=== PATIENT | female | born 1980 | race Caucasian/White ===

== ENCOUNTER → 2019-04-19 | Outpatient (CLI) | payer BC ==
--- NOTE | 2019-04-20 15:51 | MRI ---
EXAM DESCRIPTION: Lumbar Spine w/o Contrast : Magnetic Resonance Imaging. CLINICAL HISTORY: LUMBAR DISC DISEASE COMPARISON: None. TECHNIQUE: Multiplanar, multiple standard sequences, non contrast MRI, lumbar spine. Some segments is demonstrate motion artifact. FINDINGS: L5-S1: The entire disc space is visualized on axial T2 sequence 501, image 3. Grade 1 retrolisthesis 3.5 mm. Bilaterally shortened pedicles. Posterior midline disc bulge 4.5 mm with desiccated signal. Minimal disc space loss. AP canal diameter 11 mm. Posterior elements are unremarkable. Bilateral moderate foraminal narrowing more on the right. L4-L5: Disc desiccation with disc space preserved. Posterior midline 5 mm protrusion with extrusion inferior to the disc space, almost 10 mm, effacing the right subarticular recess and abutting the descending right L5 nerve. Bilateral hypertrophic facet arthrosis, right more than left, and thickening of the posterior flavum ligaments. Bilaterally shortened pedicles. Small cysts posterior to the left facet joint. AP canal diameter 10 mm to the right of midline. Mild to moderate bilateral foraminal narrowing. L3-L4: Normal signal in the disc. Focal concavities in the endplates. Disc spaces otherwise preserved and no posterior bulging. Bilateral shortened pedicles with mild canal narrowing. Thickening of the posterior ligaments. Bilateral mild foraminal narrowing. L2-L3: Disc desiccation and minimal disc space loss. Schmorl's node in the superior endplate. Bilaterally shortened pedicles. Anterior moderate endplate reactive changes and bulging disc. Tiny posterior left paracentral disc bulge 4 mm and minimal narrowing of the base of the left foramen and the left subarticular recess. Bilateral foramina are patent. Left paracentral AP canal diameter 10 mm. L1-L2: Normal signal in the disc and posterior disc space narrowing. Focal concavities in the endplates with no disc bulge. Minimal thickening of the posterior ligaments. Mild canal narrowing. Bilateral foramina are patent. T12-L1: Normal signal in the disc with posterior disc space narrowing. Focal concavities in the endplates. No posterior disc bulge. Posterior elements unremarkable. Canal and bilateral foramina are patent. No scoliosis. Paravertebral soft tissues unremarkable.. Normal marrow signal in the remaining vertebral bodies and the posterior elements. Vertebral bodies are not compressed at any level. IMPRESSION: 1. Bilaterally shortened pedicles contribute to canal narrowing or stenosis at multiple levels. Also focal concavities in the central endplates at multiple levels. 2. Grade 1 retrolisthesis at L5-S1. Posterior midline disc bulge with moderate canal narrowing. Bilateral moderate foraminal narrowing. 3. Posterior midline protrusion of the L4-5 disc and extrusion inferior to the disc space effacing the right subarticular recess and abutting the descending right L5 nerve. Bilateral facet arthrosis with small cysts posterior to the left facet. 4. Posterior left paracentral L2-L3 disc bulge with left paracentral borderline canal stenosis. Moderate spondylosis anterior endplates. Disc also narrowing the left subarticular recess and abutting the descending left L3 nerve. Electronically signed by: Chiki Interiano MD 04/20/2019 3:49 PM CDT
== END ==
LOC: MRI 14:16
PROVIDERS: ATTEND Nurse Practitioner Family
DX: M51.36 Other intervertebral disc degeneration, lumbar region (principal); M43.17 Spondylolisthesis, lumbosacral region; M51.86 Other intervertebral disc disorders, lumbar region; M47.896 Other spondylosis, lumbar region

== ENCOUNTER 2019-11-13 04:30 | Observation (INO) | payer BC ==
[2019-11-13] MEDS ORDERED: ONDANSETRON INJ 4 MG/2 ML VIAL IV ONE ×2 (04:42→08:41)
[2019-11-13] MEDS ORDERED: SODIUM CHLORIDE 0.9% (FLUSH) 10 ML SYG IV PRN ×2 (04:42→10:16)
[2019-11-13] MEDS ORDERED: SODIUM CHLORIDE 0.9% 1000ML 1,000 ML IVS PRN (04:42)
[2019-11-13] MEDS ORDERED: ALUM & MAG HYDROX-SIMETHICONE 30 ML, LIDOCAINE VISCOUS 2% 15 ML PO ONE ×2 (05:46)
[2019-11-13] MEDS ORDERED: LIDOCAINE HCL 2% (MOUTH-THROAT) 15 ML UD ONE (05:47)
[2019-11-13] MEDS ORDERED: ALUM & MAG HYDROX-SIMETHICONE 30 ML UD ONE (05:47)
[2019-11-13] MEDS ORDERED: HYDROmorphone HCL INJ 2 MG/ML VIAL IV ONE ×2 (06:13→07:15)
--- NOTE | 2019-11-13 06:47 | ED.PDOC ---
History of Present Illness - General Chief Complaint: GI Problem Stated Complaint: abd pain, nausea Time Seen by Provider: 11/13/19 05:45 Information Source: patient, RN notes reviewed, Vital Signs reviewed Exam Limitations: no limitations - History of Present Illness Initial Comments: Patient is a 39-year-old white female who presents with complaints of epigastric abdominal pain. The abdominal pain started about 1:30 in the morning and awoke her from sleep. The pain is crampy as well as sharp and stabbing. Nothing seems to make the pain better. She tried drinking water, a Sprite and taking an antacid without success. Nothing seems to make the pain worse. Patient complains of nausea. She denies any chest pain, shortness of breath, vomiting or diarrhea. Abdominal Pain Onset Location: epigastric Pain Radiation: no radiation Quality: severe, cramping, stabbing Timing/Duration: 4-6 hours Improving Factors: nothing Worsening Factors: nothing Associated Symptoms: heartburn, nausea/vomiting - Nausea only Review of Systems - Review of Systems Constitutional: States: no symptoms reported, see HPI. Denies: chills, fever EENTM: States: no symptoms reported Respiratory: States: no symptoms reported Cardiology: States: no symptoms reported. Denies: chest pain, palpitations, syncope Gastrointestinal/Abdominal: States: see HPI, abdominal pain, nausea. Denies: diarrhea, vomiting Genitourinary: States: no symptoms reported Musculoskeletal: States: no symptoms reported Skin: States: no symptoms reported Neurological: States: no symptoms reported Endocrine: States: no symptoms reported Hematologic/Lymphatic: States: no symptoms reported All other Systems: Reviewed and Negative Past Medical History (General) - Patient Medical History Hx Asthma: No Hx Hypertension: Yes Hx Diabetes: No Surgical History: Hysterectomy - Vaccination History Hx Tetanus, Diphtheria Vaccination: Yes Hx Influenza Vaccination: No - Social History Hx Alcohol Use: Yes Family Medical History - Family History Mother Living Status: Hx Family Hypertension: Yes Hx Cardiac Disease: Yes Father Hx Family Hypertension: Yes Hx Family Cancer: Yes - prostate Physical Exam - Physical Exam General Appearance: Alert, Anxious, Obvious distress, Well Developed, Well Groomed, Well Hydrated, Well Nourished Eyes, Ears, Nose, Throat Exam: PERRL/EOMI, pharynx normal Neck: non-tender, full range of motion, supple, normal inspection Respiratory: chest non-tender, lungs clear, normal breath sounds, no respiratory distress, no accessory muscle use Cardiovascular/Chest: normal peripheral pulses, regular rate, rhythm, no edema, no gallop, no JVD, no murmur Peripheral Pulses: No deficit Gastrointestinal/Abdominal: normal bowel sounds, soft, tenderness - Epigastric, no peritoneal signs. Back Exam: normal inspection, no CVA tenderness, no vertebral tenderness Extremity: normal range of motion, non-tender, normal inspection, no pedal edema Neurologic: medical billing specialist II-XII nml as tested, no motor/sensory deficits, alert, normal mood/affect, oriented x 3 Skin Exam: normal color, warm/dry Lymphatic: no adenopathy Progress - Progress Progress: DDX: GERD, PUD, bowel obstruction, perforation among others. 11/13/19 07:08 Pt handed off to oncoming provider. - Results/Orders Results/Orders: 11/13/19 04:42 Sodium Chloride 0.9% (Flush) [Saline Flush Syringe] 10 ml IV PRN PRN Sodium Chloride 0.9% 1000ML [Ns 1000 ml] 1,000 ml IVS .QD 11/13/19 04:43 IV Care:Saline Lock per Protoc QSHIFT 11/13/19 06:17 Hold Metformin x 48Hrs [id number] Abdomen/Pelvis w/Contrast [CT] Stat Laboratory Results - last 24 hr 11/13/19 11/13/19 11/13/19 04:54 04:54 04:54 WBC 12.2 H RBC 4.60 Hgb 15.0 Hct 43.8 MCV 95.2 MCH 32.5 H MCHC 34.2 RDW 13.7 Plt Count 184 MPV 10.9 H Absolute Neuts (auto) 8.30 H Absolute Lymphs (auto) 2.90 Absolute Monos (auto) 0.70 Absolute Eos (auto) 0.20 Absolute Basos (auto) 0.10 Neutrophils % 68.2 Lymphocytes % 23.9 Monocytes % 5.9 Eosinophils % 1.2 Basophils % 0.8 Sodium 137 Potassium 3.2 L Chloride 99 L Carbon Dioxide 25 Anion Gap 16.2 BUN 12 Creatinine 0.72 BUN/Creatinine Ratio 16.7 Random Glucose 130 H Serum Osmolality 275.3 Lactic Acid Calcium 9.6 Total Bilirubin Direct Bilirubin Indirect Bilirubin AST ALT Alkaline Phosphatase Serum Total Protein Albumin Amylase 30 Lipase 36 Urine Color Yellow Urine Appearance Clear Urine pH 5.5 Ur Specific [place] >= 1.030 Urine Protein Negative Urine Glucose (UA) Negative Urine Ketones Trace Urine Blood Moderate H Urine Nitrite Negative Urine Bilirubin Negative Urine Urobilinogen 0.2 Ur Leukocyte Esterase Negative Urine RBC 3-5 H Urine WBC 0-1 Ur Epithelial Cells 5-10 Amorphous Sediment Trace Urine Bacteria 4+ H Urine HCG, Qual 11/13/19 11/13/19 11/13/19 05:48 06:22 06:44 WBC RBC Hgb Hct MCV MCH MCHC RDW Plt Count MPV Absolute Neuts (auto) Absolute Lymphs (auto) Absolute Monos (auto) Absolute Eos (auto) Absolute Basos (auto) Neutrophils % Lymphocytes % Monocytes % Eosinophils % Basophils % Sodium Potassium Chloride Carbon Dioxide Anion Gap BUN Creatinine BUN/Creatinine Ratio Random Glucose Serum Osmolality Lactic Acid 2.2 Calcium Total Bilirubin 0.6 Direct Bilirubin 0.1 Indirect Bilirubin 0.5 AST 24 ALT 43 Alkaline Phosphatase 58 Serum Total Protein 7.7 Albumin 4.5 Amylase Lipase Urine Color Urine Appearance Urine pH Ur Specific [place] Urine Protein Urine Glucose (UA) Urine Ketones Urine Blood Urine Nitrite Urine Bilirubin Urine Urobilinogen Ur Leukocyte Esterase Urine RBC Urine WBC Ur Epithelial Cells Amorphous Sediment Urine Bacteria Urine HCG, Qual Negative Departure - Departure Clinical Impression: Abdominal pain Qualifiers: Abdominal location: epigastric Qualified Code(s): R10.13 - Epigastric pain Condition: Fair Departure Forms: ED Discharge - Pt. Copy, Patient Portal Self Enrollment Referrals: Sushma Monzon NP [Primary Care Provider] - 1-2 Weeks Home Medications: Ambulatory Orders Bupropion HCl [Bupropion Hydrochloride E] 150 mg PO DAILY 11/13/19 Cyclobenzaprine HCl [Flexeril] 5 mg PO TID PRN 11/13/19 Escitalopram [Lexapro] 10 mg PO BEDTIME 11/13/19 Hydrochlorothiazide 25 mg PO DAILY 11/13/19 Nebivolol HCl [Bystolic] 20 mg PO DAILY 11/13/19 Omeprazole 40 mg PO DAILY 11/13/19
[2019-11-13] MEDS ORDERED: PANTOPRAZOLE SODIUM IV 40 MG VIAL IV ONE (07:45)
--- NOTE | 2019-11-13 08:12 | CT ---
EXAM DESCRIPTION: CT ABDOMEN AND PELVIS WITH CONTRAST CLINICAL HISTORY: epigastric pain COMPARISON: None Available. TECHNIQUE: CT of the abdomen and pelvis are performed after IV contrast administration. No oral contrast was given. Multiplanar reconstructions were obtained. FINDINGS: The lung bases are clear. The liver is mildly enlarged measuring 20 cm and is normal in contour. The gallbladder is unremarkable without calcified gallstone. No biliary ductal dilatation. The Spleen, pancreas, and kidneys enhances normally. No hydronephrosis or nephrolithiasis. No focal bowel wall thickening or bowel obstruction. The appendix is normal. Mild distal descending colonic diverticulosis without diverticulitis. There is no lymphadenopathy, inflammation, or free fluid observed. The partially decompressed bladder is unremarkable. The uterus is surgically absent. No acute osseous abnormality. Degenerative changes of the spine. IMPRESSION: 1. No acute intra-abdominal/pelvic process is seen on CT. 2. Mild diverticulosis without diverticulitis. 3. Mild hepatomegaly. This exam was performed according to our departmental dose-optimization program, which includes automated exposure control, adjustment of the mA and/or kV according to patient size and/or use of iterative reconstruction technique. Electronically signed by: Zac Canas DO 11/13/2019 8:11 AM [facility]
[2019-11-13] MEDS ORDERED: fentaNYL CITRATE INJ 50 MCG/ML AMP IV ONE (08:41)
--- NOTE | 2019-11-13 09:22 | HP ---
SUPERVISING PHYSICIAN: Speedy Grady MD CHIEF COMPLAINT: Epigastric abdominal pain. HISTORY OF PRESENT ILLNESS: Ms. Person is a 39 year-old female patient who presented to the Emergency Room early this morning after she started having some abdominal pain in her epigastric region around 1:30. She noted the pain awakened her from sleep and was described as cramping, sharp and stabbing with some radiation to her back. She denied any chest pain, shortness of breath, diaphoresis. She was a little nauseated but had no emesis. She tried drinking some water, Sprite, take an antacid without any success in relieving her discomfort. She presented to the Emergency Room for evaluation. Workup showed she had a mild leukocytosis of 12,000 with no left shift. Chemistries showed a mild hypokalemia at 3.2 on potassium and lactic acid normal at 2.2 with liver functions all within normal limits as well as lipase and amylase, She had a CT of the pelvis/abdomen with contrast and per radiology interpretation there was no acute intraabdominal or pelvic process on the CT. There was note of some mild diverticulosis without any diverticulitis and some mild hepatomegaly. The gallbladder was noted to be unremarkable without stones in the biliary duct and without any biliary duct dilation. Dr. Post, general surgeon, was consulted in the Emergency Room and saw the patient, After examination, Dr. Post recommended the patient could be observed for further treatment and pain control and would likely need an EGD in the near future to further assess the source of the pain in her epigastric region. The patient required multiple doses of medication for pain control including Dilaudid and Fentanyl. Given that she is requiring IV pain management and the severity of the pain, she is going to be placed in observation for further pain control and close observation. The patient is placed in observation in stable condition. PAST MEDICAL HISTORY: 1. Gastroesophageal reflux disease. 2. Hypertension. 3. Depression. PAST SURGICAL HISTORY: Partial hysterectomy. CURRENT MEDICATIONS: 1. Omeprazole 40 mg daily. 2. Flexeril 5 mg t.i.d. as needed. 3. Bupropion 150 mg daily. 4. Bystolic 20 mg daily. 5. Hydrochlorothiazide 25 mg daily. 6. Lexapro 10 mg at bedtime. ALLERGIES: PENICILLIN FAMILY HISTORY: Father at age 62 with history of pancreatic cancer. Mother at 65 due to myocardial infarction. She has one sister and 2 brothers who are all healthy. SOCIAL HISTORY: The patient recently moved to [place] within the last 2 months and currently works at the [employer]. She currently smokes approximately 5 to 6 cigarettes daily. She drinks alcohol in the form of mixed drinks and liquor, maybe one or two drinks every other week. Her most recent was last night with supper. REVIEW OF SYSTEMS: CONSTITUTIONAL: As noted in history of present illness. General malaise but denies fevers or chills but with some nausea. HEENT: Negative for sore throats, earaches, nasal congestion, vision changes. RESPIRATORY: Denies coughing, wheezing shortness of breath. CARDIOVASCULAR: Negative for chest pain, palpitations or syncopal episodes. GASTROINTESTINAL: As noted in history of present illness. Epigastric abdominal pain with nausea but no actual emesis. Denies diarrhea, constipation/ GENITOURINARY: Negative for dysuria, hematuria, polyuria. MUSCULOSKELETAL: Denies joint swelling or arthralgias. SKIN: No reported lesions, moles, rashes or unexplained changes. NEUROLOGIC: Denies ataxia, seizures or syncopal episodes, headaches or other focal deficits. PHYSICAL EXAMINATION: VITAL SIGNS: Initially in the Emergency Room, she was showing to be quite hypertensive with a blood pressure of 166/117. She is afebrile at 97.6 with pulse of 85. Respirations 20, oxygen saturation 96% on room air. After pain management and prior to admission to the floor, her blood pressure was better controlled at 137/73. Initial weight 119 kg. GENERAL: The patient appears to be well-hydrated and well-nourished but is in some discomfort from pain but in no acute obvious distress. HEENT: Tympanic membranes clear bilateral, oropharynx pink and moist without any lesions. NECK: Supple, non-tender, full range of motion, no jugular venous distention. CHEST: Lung sounds are clear to auscultation bilaterally without rhonchi, rales, or wheezes. CARDIOVASCULAR: Regular rate and rhythm without appreciable murmurs, rubs, or gallops. ABDOMEN: Soft, with tenderness noted over the epigastric region but no peritoneal signs, no rebound tenderness, no guarding, no point tenderness. BACK: Normal inspection with no CVA or vertebral tenderness. EXTREMITIES: No edema. NEUROLOGIC: Cranial nerves II through XII are grossly intact. She is alert and oriented x3. SKIN: Warm, pink and dry. LABORATORY: CBC showed a mild leukocytosis of 12,200, hemoglobin 15, hematocrit 43.8, platelet count 184,000, differential showed to be without a left shift. Chemistries showed a mildly low potassium at 3.2, sodium normal at 137, BUN 12, creatinine 0.72, lactic acid 2.2, calcium 9.6. Liver functions all within normal limits. Troponins pending at time of admission. Amylase and lipase both within normal limits . Urinalysis showed a moderate amount of blood with 3 to 5 RBCs on microscopic exam with 0 WBCs, 5 to 10 epithelials, trace of amorphous material and 4+ bacteria. HCG urine was negative. RADIOLOGY: Abdominal/pelvic CT with contrast per radiology interpretation showed no acute intraabdominal pelvic process seen on CT. There was note of mild diverticulosis without diverticulitis and some mild hepatomegaly. ASSESSMENT: 1. Acute abdominal pain, epigastric region, possibly gastritis versus peptic ulcer disease, duodenitis with patient requiring IV pain control with no acute findings on CT. 2. Diverticulosis noted on CT without any signs of diverticulitis. 3. Hypertension. 4. Gastroesophageal reflux disease possibly contributing to #1 with the patient on a PPI. 5. Mild electrolyte imbalance with a hypokalemia. 6. Depression. PLAN: Ms. Person is going to be placed in observation to assist with pain control and initially she will be on clear liquids. She will be given antiemetics with Zofran and Phenergan as needed and pain control with Dilaudid and morphine as needed. We will go ahead and start her on some IV fluids to help replace some of the potassium. IV fluids will include normal saline with 20 of potassium. I will also start her on some Carafate a.c. and h.s. as well as continued coverage with Protonix. We will resume her medication as appropriate to care once those have been updated and verified. She was seen in consultation with Dr. Post prior to admission who noted that the patient would need to be seen as an outpatient after discharge for EGD for further evaluation. Until we can transition him to outpatient management, we will continue to monitor and treat as needed. #[id number] [facility]
[2019-11-13] MEDS ORDERED: ACETAMINOPHEN 325 MG TAB PO PRN (10:16)
[2019-11-13] MEDS ORDERED: IV SET AND CAP CHANGE INJ INJ SCH (10:30)
[2019-11-13] MEDS: MORPHINE SULFATE INJ 10 MG/ML VIAL IV PRN ×3 (11:05→18:28)
[2019-11-13] MEDS: ONDANSETRON INJ 4 MG/2 ML VIAL IV PRN ×2 (11:06→18:28)
[2019-11-13] MEDS: KCL 20 MEQ/NS 1,000 ML IVS PRN ×2 (11:08→18:27)
[2019-11-13] MEDS ORDERED: CYCLOBENZAPRINE HCL 5 MG TAB PO PRN (12:53)
[2019-11-13] MEDS: hydroCHLOROthiazide 25 MG TAB PO SCH (13:34)
[2019-11-13] MEDS: SUCRALFATE 1 GM/10 ML 1 GM UD PO SCH ×3 (13:35→20:16)
[2019-11-13] MEDS ORDERED: KETOROLAC TROMETHAMINE INJ 30 MG/ML VIAL IV ONE (17:55)
--- NOTE | 2019-11-13 19:04 | RAD ---
EXAM DESCRIPTION: Abdomen Flat Upright CLINICAL HISTORY: 39 years Female abd pain COMPARISON: None TECHNIQUE: Three images of the abdomen were obtained. FINDINGS: Gas is seen throughout the bowel. Bowel is normal in caliber. Linear radiopaque densities overlying sacrum likely related to prior fallopian tube instrumentation. Multiple pelvic calcifications likely vascular in nature. No intraperitoneal free air. IMPRESSION: Nonspecific bowel gas pattern. No bowel obstruction or perforation. Electronically signed by: Thelma Lovelace MD 11/13/2019 7:03 PM [employer]
[2019-11-13] MEDS: NEBIVOLOL 2.5 MG TAB PO SCH (19:20)
[2019-11-13] MEDS ORDERED: levoFLOXacin 500MG IV 500 MG in PREMIX BAG 1 BAG IVPB SCH (20:30)
[2019-11-13] MEDS ORDERED: levoFLOXacin 500MG IV 100 ML IVPB ONE (20:34)
[2019-11-13] MEDS ORDERED: ESCITALOPRAM 10 MG TAB PO SCH (21:00)
[2019-11-14] MEDS ORDERED: KETOROLAC TROMETHAMINE INJ 30 MG/ML VIAL IV ONE (01:00)
[2019-11-14] MEDS: KCL 20 MEQ/NS 1,000 ML IVS PRN (03:13)
[2019-11-14] MEDS: SUCRALFATE 1 GM/10 ML 1 GM UD PO SCH ×2 (06:14→12:15)
[2019-11-14] MEDS: ONDANSETRON INJ 4 MG/2 ML VIAL IV PRN (09:53)
[2019-11-14] MEDS ORDERED: KETOROLAC TROMETHAMINE INJ 30 MG/ML VIAL IM ONE (10:01)
[2019-11-14] MEDS ORDERED: HYDROcodone 10MG/APAP 325MG 1 EA TAB PO ONE (10:01)
[2019-11-14] MEDS: hydroCHLOROthiazide 25 MG TAB PO SCH (10:55)
[2019-11-14] MEDS: NEBIVOLOL 2.5 MG TAB PO SCH (10:55)
[2019-11-14 13:26] VITALS: BP 111/73; TEMP 97.9; O2SAT 99
--- NOTE | 2019-11-15 10:05 | DS ---
SUPERVISING PHYSICIAN: Speedy Grady MD CONSULTING PHYSICIAN: Speedy Post MD ADMISSION DIAGNOSIS: 1. Acute abdominal pain, epigastric region, possibly gastritis versus peptic ulcer disease, duodenitis with patient requiring IV pain control with no acute findings on CT. 2. Diverticulosis noted on CT without any signs of diverticulitis. 3. Hypertension. 4. Gastroesophageal reflux disease possibly contributing to #1 with the patient on a proton pump inhibitor. 5. Mild electrolyte imbalance with hypokalemia. 6. Depression. DISCHARGE DIAGNOSIS: 1. Acute abdominal pain, uncertain etiology, differential to include possible gastritis versus peptic ulcer disease, duodenitis, cholelithiasis without any acute cholecystitis with patient showing good response to treatment, needing EGD on followup with no other acute findings on CT. 2. Diverticulosis without any signs of diverticulitis. 3. Leukocytosis with no overt signs of infectious process other than a mild urinary tract infection that was treated with Levaquin, felt to be related to acute pain with demargination with white count normalizing prior to discharge. 4. Hypertension, stable. 5. Gastroesophageal reflux disease previously on a proton pump inhibitor, possibly contributing to #1 with a stable hemoglobin and hematocrit. 6. Mild electrolyte imbalance with hypokalemia, resolved with treatment. 7. Depression. REASON FOR HOSPITALIZATION: Ms. Person is a 39 year-old female patient who presented to the Emergency Room early this morning after she started having some abdominal pain in her epigastric region around 1:30. She noted the pain awakened her from sleep and was described as cramping, sharp and stabbing with some radiation to her back. She denied any chest pain, shortness of breath, diaphoresis. She was a little nauseated but had no emesis. She tried drinking some water, Sprite, take an antacid without any success in relieving her discomfort. She presented to the Emergency Room for evaluation. Workup showed she had a mild leukocytosis of 12,000 with no left shift. Chemistries showed a mild hypokalemia at 3.2 on potassium and lactic acid normal at 2.2 with liver functions all within normal limits as well as lipase and amylase, She had a CT of the pelvis/abdomen with contrast and per radiology interpretation there was no acute intraabdominal or pelvic process on the CT. There was note of some mild diverticulosis without any diverticulitis and some mild hepatomegaly. The gallbladder was noted to be unremarkable without stones in the biliary duct and without any biliary duct dilation. Dr. Post, general surgeon, was consulted in the Emergency Room and saw the patient, After examination, Dr. Post recommended the patient could be observed for further treatment and pain control and would likely need an EGD in the near future to further assess the source of the pain in her epigastric region. The patient required multiple doses of medication for pain control including Dilaudid and Fentanyl. Given that she is requiring IV pain management and the severity of the pain, she is going to be placed in observation for further pain control and close observation. The patient is placed in observation in stable condition. LABORATORY: CBC showed slightly elevated white count at 12,200. This resolved and on discharge was 10,400 with hemoglobin 12.8, hematocrit 38.5. Differential was without a left shift at discharge. Chemistries on discharge showed normal electrolytes with BUN/creatine ratio 0.66. Lactic acid 2.2. Liver functions were within normal limits. She had three troponins that were less than 0.02. She did have one C-reactive protein that was elevated at 6.6. Her ESR was within normal limits. Amylase and lipase were both within normal limits. Urinalysis showed a moderate amount of blood with microscopic showing 3 to 5 RBCs, 5 to 10 epithelials, 1+ bacteria. HCG was negative. Toxicology screen was negative for substances tested. MICROBIOLOGY: No specimens were submitted for evaluation. RADIOLOGY: Abdominopelvic CT on admission to the Emergency Room with contrast per radiologic interpretation showed no intraabdominal or pelvic process. There was note of diverticulosis, but no diverticulitis as well as some mild hepatomegaly. Additional x-rays included abdominal x-ray which showed nonspecific bowel gas pattern, but no bowel obstruction or perforation. HOSPITAL COURSE: Ms. Person was admitted for acute abdominal pain on 11/13/19 from the Emergency Room. She was kept NPO initially and then started on p.o. liquids. She was treated with pain management with Dilaudid and morphine as needed and antiemetics. She did have a consultation with Dr. Post to review her CT findings. Please see his consultation for details. She was given IV fluids. She was no longer having any significant amount of pain other than just some achy pain that was resolving with Toradol. She did have a little bit of nausea associated with her meals, but was able to tolerate oral intake and showing to be stable clinically. It was felt she was clinically stable and had improved well enough to continue with outpatient management to include an outpatient EGD and an ultrasound of her liver and gallbladder. PHYSICAL ASSESSMENT ON DISCHARGE: VITAL SIGNS: Stable with temperature 97.9, pulse 76, blood pressure 111/73, respiratory rate 16, saturation 99% on room air. GENERAL APPEARANCE: The patient was without any acute distress. She was alert. CHEST: Lung sounds clear to auscultation without any wheezing, rhonchi or rales. HEART: Regular rate and rhythm. ABDOMEN: Soft with some mild tenderness noted on epigastric palpation. No rebound tenderness, no point tenderness, no peritoneal signs. Bowel sounds were active. EXTREMITIES: Without edema. NEUROLOGIC: Alert and oriented times 3. SKIN: Warm, pink and dry. PLAN: Ms. Person was discharged on 11/14/19 with instructions to followup with [facility] and Dr. Post. She is to call Dr. Post's office after discharge and was given outpatient paperwork requisition for a followup ultrasound of the gallbladder and liver with results to be sent to Dr. Post. She will need an EGD which will be arranged by Dr. Post's office. She was educated on avoiding alcohol and smoking. She was told to push fluids to prevent dehydration. She was given Toradol for pain, but instructed to only take it if Tylenol did not control her pain. She was also given some Zofran as needed. She was instructions should she have any worsening of symptoms or other concerns to return to the Emergency Room for further evaluation. Diet on discharge was clear liquid diet, advance to full diet as tolerated. Avoid spicy and fatty foods. Activity to increase as tolerated. Medications on discharge included: 1. Cipro 250 mg q.12h., #10, no refills, for continued treatment of questionable urinary tract infection. 2. Toradol 10 mg q.6h., #10, no refills. 3. Zofran ODT 8 mg q.6h. as needed, #8. 4. Carafate 1 gram orally before meals and at bedtime, #10, no refills. All other home medications were continued as prior to hospitalization which included: 1. Omeprazole 40 mg daily. 2. Flexeril 5 mg b.i.d. as needed. 3. Wellbutrin 150 mg daily. 4. Bystolic 20 mg daily. 5. Hydrochlorothiazide 25 mg daily. 6. Lexapro 10 mg at bedtime. CONDITION ON DISCHARGE: Stable and improved. DISPOSITION: The patient was discharged home to care of family. #[id number] [facility]
== END 2019-11-14 12:40 | disposition home or self-care (01) ==
LOC: ER 04:30 → MS 09:21
PROVIDERS: ADMIT Nurse Practitioner Family; ATTEND Nurse Practitioner Family
DX: R10.13 Epigastric pain (principal); E87.6 Hypokalemia; E87.8 Other disorders of electrolyte and fluid balance, not elsewhere classified; R11.0 Nausea; K57.30 Diverticulosis of large intestine without perforation or abscess without bleeding; D72.829 Elevated white blood cell count, unspecified; N39.0 Urinary tract infection, site not specified; I10 Essential (primary) hypertension; K21.9 Gastro-esophageal reflux disease without esophagitis; F32.9 Major depressive disorder, single episode, unspecified; R16.0 Hepatomegaly, not elsewhere classified; F17.210 Nicotine dependence, cigarettes, uncomplicated; Z79.899 Other long term (current) drug therapy; Z88.0 Allergy status to penicillin; Z90.710 Acquired absence of both cervix and uterus; Z80.0 Family history of malignant neoplasm of digestive organs; Z82.49 Family history of ischemic heart disease and other diseases of the circulatory system
CPT/HCPCS: 96366 ×2; 96365; 96375; 96376 ×2; 96372; J3010; J1170 ×2; J1885 ×3; J1956; J2270 ×3; J2405 ×5; J7030; J3480 ×3; 80048; 80053; 80307; 81025; 36415 ×5; 82150 ×2; 81001; 80076; 86140; 85025 ×3; 83690 ×2; 85651; 84484 ×3; 83605; 74019; 74177; 99285; 93005; G0378

== ENCOUNTER → 2019-11-16 | Outpatient (CLI) | payer OTHER ==
--- NOTE | 2019-11-16 17:03 | US ---
EXAM DESCRIPTION: Abdomen,Limited: ULTRASOUND. CLINICAL HISTORY: EPIGASTRIC PN COMPARISON: None. TECHNIQUE: Transabdominal scanning: berman-scale mode. Doppler mode.. Technically difficult study due to patient large body habitus. FINDINGS: Gallbladder: Gallbladder not enlarged but 3 echogenic stones mobile with patient change in position. Acoustic shadowing posterior. Largest stone diameter 1.9 cm. Thickening of the gallbladder wall with edema, at 11.4 mm. Tender with transducer pressure. Common bile duct: caliber 6.8 mm is dilated. Liver: Diffuse increased echogenicity; posterior liver and anatomy posterior to the liver not as well visualized. Contour liver capsule smooth where seen. No fluid around the liver. Intrahepatic biliary ducts normal caliber. Doppler hepatopedal flow and normal caliber portal vein.. Long axis right lobe 20.9 cm. Pancreas: normal size and increased echogenicity. Duct not seen. Proximal abdominal aorta: 2.1 cm normal.. IVC: visualized and normal caliber. Right kidney: long axis measures 11.1 cm. Normal cortical Echogenicity. Normal cortical thickness. No echogenic stones or hydronephrosis. IMPRESSION: 1. Cholelithiasis and cholecystitis with edema in the wall of the gallbladder, multiple stones, and tenderness with transducer pressure. 2. Diffuse steatosis of the liver with enlargement. Physiologic ducts and vascularity. Smooth capsule with no ascites. Difficulty visualization of the posterior liver and anatomy posterior to the liver due to size of the liver and large patient body habitus. 3. Pancreas and right kidney are unremarkable. Electronically signed by: Chiki Interiano MD 11/16/2019 5:02 PM [employer]
== END ==
LOC: US 16:11
PROVIDERS: ATTEND Surgery
DX: K80.00 Calculus of gallbladder with acute cholecystitis without obstruction (principal); K76.0 Fatty (change of) liver, not elsewhere classified

== ENCOUNTER 2019-11-19 05:41 | Day surgery (SDC) | payer OTHER ==
--- NOTE | 2019-11-17 13:49 | RAD ---
EXAM DESCRIPTION: XR CHEST 2 VIEWS CLINICAL HISTORY: Preoperative respiratory evaluation. Z01.811. Abdominal surgery planning COMPARISON: None TECHNIQUE: PA/lateral FINDINGS: Heart size is normal. The lungs are clear. No acute bony abnormality. IMPRESSION: No acute cardiopulmonary process. Electronically signed by: Dameon Avina MD 11/17/2019 1:47 PM [facility]
[2019-11-19] MEDS ORDERED: ONDANSETRON INJ 4 MG/2 ML VIAL IV ONE (10:00)
[2019-11-19] MEDS ORDERED: raNITIdine HCL INJ 25 MG/ML VIAL IV ONE (10:00)
[2019-11-19] MEDS ORDERED: ePHEDrine SULF 50 MG/ML IV ONE (10:00)
[2019-11-19] MEDS ORDERED: PROPOFOL 200 MG/20 ML VIAL IV ONE (10:00)
[2019-11-19] MEDS ORDERED: DEXAMETHASONE INJ 10 MG/ML VIAL IV ONE (10:00)
[2019-11-19] MEDS ORDERED: LIDOCAINE 1% 10 ML VIAL INJ ONE (10:00)
[2019-11-19] MEDS ORDERED: SODIUM CHLORIDE 0.9% 50 ML VIAL INJ ONE (10:00)
[2019-11-19] MEDS ORDERED: BUPIVACAINE 0.5% W/EPI 30 ML VIAL INJ ONE ×2 (10:55→11:47)
[2019-11-19] MEDS ORDERED: LACTATED RINGERS 1,000 ML ONE (10:59)
[2019-11-19] MEDS ORDERED: MIDAZOLAM INJ 5 MG/5 ML VIAL ONE (11:15)
[2019-11-19] MEDS ORDERED: KETAMINE HCL 100 MG/ML VIAL ONE (11:42)
[2019-11-19] MEDS ORDERED: DEXMEDETOMIDINE HCL 200 MCG/2 ML INJ IV ONE (11:42)
[2019-11-19] MEDS ORDERED: ROCURONIUM BROMIDE 10 MG/ML VIAL ONE ×2 (11:43→12:43)
[2019-11-19] MEDS ORDERED: IOPROMIDE INJ 300 MG/ML 50 ML IV ONE (11:47)
[2019-11-19] MEDS ORDERED: SUGAMMADEX SODIUM 200 MG/2 ML VIAL IV ONE (12:43)
[2019-11-19] MEDS ORDERED: ELECTROLYTE-A 1,000 ML IVS ONE (12:53)
[2019-11-19] MEDS ORDERED: fentaNYL CITRATE INJ 50 MCG/ML AMP ONE (13:30)
[2019-11-19] MEDS: fentaNYL CITRATE INJ 50 MCG/ML AMP ONE ×4 (13:30→15:58)
[2019-11-19] MEDS ORDERED: KETOROLAC TROMETHAMINE INJ 30 MG/ML VIAL ONE (13:31)
[2019-11-19] MEDS: HYDROmorphone HCL INJ 2 MG/ML VIAL ONE ×3 (13:45→14:10)
--- NOTE | 2019-11-19 14:45 | OP ---
DATE OF PROCEDURE: 11/19/19 PREOPERATIVE DIAGNOSIS: 1. Cholecystitis. POSTOPERATIVE DIAGNOSIS: 1. Cholecystitis. PROCEDURE: 1. Cholecystectomy. 2. Anterior wallectomy with intraperitoneal drain placement. SURGEON: Speedy Post MD. ANESTHESIA: General and local. FINDINGS: The gallbladder was severely inflamed. The infundibular structures were able to be dissected out clearly due to chronic scarring and inflammation, so the top of the gallbladder, i.e., extended anterior wallectomy was performed for retrieval of all the stones. There were large and small stones in the gallbladder. COMPLICATIONS: None. ESTIMATED BLOOD LOSS: Minimal. DRAINS: 19 Jason drain was placed. PLAN: Admit for observation, drain management and antibiotics. INDICATION: The patient is a 39-year-old woman who had presented to the Emergency Room days ago with abdominal pain. CT was not revealing, but in followup, she got an ultrasound which showed cholecystitis, so she is now consented for the procedure understanding all risks and benefits. We even discussed the possibility of open procedure. PROCEDURE: The patient was brought to the Operating Suite in supine position. General anesthesia was induced. The patient was prepped and draped in sterile fashion. Marcaine 0.5% with epinephrine was used at all incision sites. While maintaining upward traction, a ariana was made near the base of the umbilicus. Veress needle was introduced. There was free flow of fluid into the peritoneal cavity which was insufflated to an appropriate level with CO2 gas. The 5 mm trocar was placed followed by the camera. There was no evidence of bleeding or bowel injury. The patient was positioned and subxiphoid and lateral ports were placed under direct visualization without difficulty. The gallbladder fundus was not seen. There were adhesions to the omentum over it. These adhesions were taken down. Once we could see the fundus, a hole was made and we aspirated liquid contents. We could now decompress it and get a grasp on it. As we grasped it up, we continued dissecting the omentum off down to the infundibulum. We could see the infundibulum with the gallbladder and a large reactive node of Calot, but the planes were unable to be dissected, however. With careful dissection, we attempted to identify the cystic duct, but near the common duct, there was no identifiable tissue planes there and we could not proceed safely. It did not appear to be on the duodenum, however. At this point, I decided to amputate the gallbladder above this inflamed area, so we went across the anterior wall and proceeded back across the posterior wall and removed approximately 4/5 of the gallbladder, leaving the very distal with the cystic and a small bird's nest type appearance. There were some stones still down in there into the cystic duct. These were retrieved. There was no evidence of bile leakage. We irrigated. There was good hemostasis on the wall. No evidence of bile leak at the end of the case. It was well irrigated. All the stones were retrieved with the stone grabber. At that time, a 19 Jason silicone drain was placed down into the remaining gallbladder, along the fossa and then secured to the skin surface. The subxiphoid fascia was closed with a 0 Vicryl using the suture passer. It was airtight and non-bleeding. The remaining trocars were removed. There was no bleeding from the trocar sites. The drain was secured with Prolene. The patient was awakened and taken to Recovery. I will have her admitted overnight for pain control, antibiotics and observation of drain, which will be anticipated to be in four about a week. If there is bile leakage, we will likely leave it in for 6 weeks before removal. I discussed with the patient and her family if any bile leak was overwhelming to the drain, we may need an ERCP with a stent placement, although unlikely. #[id number] [facility]
[2019-11-19] MEDS ORDERED: HYDROcodone 5MG/APAP 325MG 1 EA TAB ONE (15:53)
[2019-11-19 16:14] VITALS: BP 116/71; TEMP 96.8; O2SAT 93
== END 2019-11-19 16:20 | disposition home or self-care (01) ==
LOC: AMB 05:41
PROVIDERS: ATTEND Surgery
DX: K80.12 Calculus of gallbladder with acute and chronic cholecystitis without obstruction (principal); K82.8 Other specified diseases of gallbladder; I10 Essential (primary) hypertension; F41.9 Anxiety disorder, unspecified; K59.00 Constipation, unspecified; F32.9 Major depressive disorder, single episode, unspecified; K21.9 Gastro-esophageal reflux disease without esophagitis; Z88.0 Allergy status to penicillin; Z90.710 Acquired absence of both cervix and uterus; Z79.899 Other long term (current) drug therapy
CPT/HCPCS: 00790; 47562; 71046; 76000; A4216; J1100; J1170; J1885; J2250; J2405; J2780; J3010; J3490; J7120

== ENCOUNTER 2019-11-19 20:57 | Emergency (ER) | payer BC, OTHER ==
--- NOTE | 2019-11-19 21:32 | ED.PDOC ---
History of Present Illness - General Time Seen by Provider: 11/19/19 21:00 Source: patient Exam Limitations: no limitations - History of Present Illness Initial Comments: The patient's a 39-year-old female presenting to the emergency room secondary to concerns over her drain from her gallbladder removal site. The bulb that was attached to her shirt slipped and fell and yanked on the tube. It does not actually appear that the tube came out any. It is sutured in place. Drainage is appropriate. The patient does however have some mild intermittent hypoxia down to around 87%when she does not take deep breaths. On further examination she does have some very mild crackles to the right base. No fever and no productive cough. This is most likely atelectasis.no sensation of shortness of breath. Timing/Duration: momentarily Severity: mild Improving Factors: nothing Worsening Factors: nothing Associated Symptoms: denies symptoms Allergies/Adverse Reactions: Allergies Penicillins Allergy (Verified 11/13/19 04:42) Home Medications: Ambulatory Orders Bupropion HCl [Bupropion Hydrochloride E] 150 mg PO DAILY 11/13/19 Hydrochlorothiazide 25 mg PO DAILY 11/13/19 Nebivolol HCl [Bystolic] 20 mg PO DAILY 11/13/19 Omeprazole 40 mg PO DAILY 11/13/19 Ciprofloxacin [Cipro] 250 mg PO BID 11/17/19 Fluticasone Propionate (Nasal) [Fluticasone Propionate Na] 50 mcg NA BEDTIME 11/17/19 Review of Systems - Review of Systems Constitutional: States: no symptoms reported EENTM: States: no symptoms reported Respiratory: States: see HPI Cardiology: States: no symptoms reported Gastrointestinal/Abdominal: States: no symptoms reported Genitourinary: States: no symptoms reported Musculoskeletal: States: no symptoms reported Skin: States: no symptoms reported Neurological: States: no symptoms reported Endocrine: States: no symptoms reported All other Systems: No Change from Baseline Past Medical History (General) - Patient Medical History Hx Seizures: No Hx Stroke: No Hx Asthma: No Hx of COPD: No Hx Congestive Heart Failure: No Hx Hypertension: Yes Hx Diabetes: No Hx MRSA: No - Vaccination History Hx Tetanus, Diphtheria Vaccination: Yes Hx Influenza Vaccination: No - Social History Hx Alcohol Use: Yes Family Medical History - Family History Mother Living Status: Hx Family Hypertension: Yes Hx Cardiac Disease: Yes Father Hx Family Hypertension: Yes Hx Family Cancer: Yes - prostate Physical Exam - Physical Exam General Appearance: Alert, Comfortable, No apparent distress Eye Exam: bilateral normal Ears, Nose, Throat: hearing grossly normal, normal ENT inspection, normal pharynx Neck: full range of motion, supple Respiratory: no respiratory distress, no accessory muscle use, rales - at the right lung base Cardiovascular/Chest: normal peripheral pulses, regular rate, rhythm, no edema Peripheral Pulses: radial,right: 2+, radial,left: 2+ Gastrointestinal/Abdominal: non tender, soft, other - operative site appears appropriate with dressing in place. Rectal Exam: deferred Back Exam: no CVA tenderness, no vertebral tenderness Extremity: normal range of motion, non-tender, normal inspection, no pedal edema, normal capillary refill Neurologic: supervisor customer complaint service II-XII nml as tested, alert, normal mood/affect, oriented x 3 Skin Exam: normal color Progress - Progress Progress: 11/19/19 21:32 the patient is a 39-year-old female presenting to emergency room secondary to concerns over her drain from her cholecystectomy site. Drain appears to be just fine at this point. She does have some mild atelectasis giving some very mild intermittent hypoxia. She has been instructed to do deep breathing and coughing exercises. Additionally she has been instructed how to use an incentive spirometer. There is no fever and no productive cough. Antibiotics do not appear warranted at this time. Keep routine follow-up. ER warnings were given. [email or web address] [phone] Departure - Departure Clinical Impression: Atelectasis, right Disposition: Discharge to Home or Self Care Condition: Fair Diet: low fat, low cholesterol Activity: increase activity as tolerated Referrals: Sushma Monzon NP [Primary Care Provider] - 1-2 Weeks Home Medications: Ambulatory Orders Bupropion HCl [Bupropion Hydrochloride E] 150 mg PO DAILY 11/13/19 Hydrochlorothiazide 25 mg PO DAILY 11/13/19 Nebivolol HCl [Bystolic] 20 mg PO DAILY 11/13/19 Omeprazole 40 mg PO DAILY 11/13/19 Ciprofloxacin [Cipro] 250 mg PO BID 11/17/19 Fluticasone Propionate (Nasal) [Fluticasone Propionate Na] 50 mcg NA BEDTIME 11/17/19 Additional Instructions: the patient is a 39-year-old female presenting to emergency room secondary to concerns over her drain from her cholecystectomy site. Drain appears to be just fine at this point. She does have some mild atelectasis giving some very mild intermittent hypoxia. She has been instructed to do deep breathing and coughing exercises. Additionally she has been instructed how to use an incentive spirometer. There is no fever and no productive cough. Antibiotics do not appear warranted at this time. Keep routine follow-up. ER warnings were given.
[2019-11-19 21:41] VITALS: TEMP 98.4
[2019-11-19 22:24] VITALS: BP 137/87; O2SAT 93
== END 2019-11-19 22:14 | disposition home or self-care (01) ==
LOC: ER 20:57
DX: J98.11 Atelectasis (principal); I10 Essential (primary) hypertension; Z90.49 Acquired absence of other specified parts of digestive tract; Z79.899 Other long term (current) drug therapy; Z88.0 Allergy status to penicillin